=== PATIENT | male | born 1985 | race Caucasian/White ===

== ENCOUNTER 2017-10-26 11:25 | Emergency (ER) | payer SELFPAY ==
[2017-10-26 11:58] VITALS: BP 114/75; PULSE 98; TEMP 98; BMI 24.3
--- NOTE | 2017-10-26 14:05 | PDOC ---
History of Present Illness - General Chief Complaint: Eye Problem Stated Complaint: LT EYE IRRITATION Time Seen by Provider: 10/26/17 13:21 History Source: Patient Exam Limitations: No Limitations - History of Present Illness Initial Comments: 10/26/17 13:58 31 y/o male presents to the ED with complaints of a bump to his right eye which he noted last week. 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 Patient states has no visual changes, fever chills or drainage from the area. Timing/Duration: constant Severity: mild Associated Symptoms: reports: denies symptoms Past History - Travel Traveled outside of the country in the last 30 days: No - Past Medical History Allergies/Adverse Reactions: Allergies Allergy/AdvReac Type Severity Reaction Status Date / Time No Known Allergies Allergy Verified 10/26/17 11:55 Home Medications: Ambulatory Orders Bacitracin Ophthalmic Oint - 0.5 inch OD BID #1 tube 10/26/17 COPD: No Other medical history: DENIES. - Suicide/Smoking/Psychosocial Hx Smoking History: Current every day smoker Have you smoked in the past 12 months: Yes Number of Cigarettes Smoked Daily: 20 Information on smoking cessation initiated: No Hx Alcohol Use: Yes (WEEKENDS) Substance Use Type: Alcohol, Marijuana Patient Lives Alone: No Lives with/in: parents Review of Systems - Review of Systems Able to Perform ROS?: Yes Constitutional: No: Symptoms Reported HEENTM: Yes: See HPI Integumentary: Yes: Lumps *Physical Exam - Vital Signs Last Vital Signs Temp Pulse Resp BP Pulse Ox 98 F 98 H 19 114/75 99 10/26/17 11:55 10/26/17 11:55 10/26/17 11:55 10/26/17 11:55 10/26/17 11:55 - Physical Exam General Appearance: Yes: Nourished, Appropriately Dressed. No: Apparent Distress HEENT: positive: Other (noted white hordeolum to inner lower eyelid approx 0.25cm in diameter. Surrounding skin intact. ) Integumentary: positive: Normal Color, Warm, Moist Procedures - Incision and Drainage I&D Site: Right: Other Betadine cleansed: No Blade Size: 18 gauge needle Attempts: 1 Complications: none Medical Decision Making - Medical Decision Making 10/26/17 14:07 Pt with purulent hordeolum to lower right eyelid. Drainage performed with 18 gauge needle. Drained purulent fluid . Pt has no complaints and ordered for bacitracin oitment for prophylaxis. *DC/Admit/Observation/Transfer Diagnosis at time of Disposition: Hordeolum internum of right lower eyelid - Discharge Dispostion Disposition: HOME Condition at time of disposition: Improved - Referrals - Patient Instructions Printed Discharge Instructions: DI for Hordeolum Additional Instructions: Please apply warm soaks to the area 4 times a day x 2 days. Use oitment to eye twice a day x 5 days - Post Discharge Activity
== END 2017-10-26 14:15 | disposition home or self-care (01) ==
LOC: JERFT 11:25
PROC: 089 Eye, Drainage (ICD-10-PCS; principal; 2017-10-26)
DX: H00.022 Hordeolum internum right lower eyelid (principal)
CPT/HCPCS: 99281-25

== ENCOUNTER 2023-01-15 12:34 | Emergency (ER) | payer BC ==
[2023-01-15 12:59] VITALS: BP 122/78; PULSE 86; RESP 18; TEMP 98; BMI 23.3
[2023-01-15] MEDS ORDERED: DIPHTH,PERTUSS(ACELL),TET 0.5 ML DISP.SYRIN IM ONE ×2 (13:15→13:47)
[2023-01-15] MEDS ORDERED: CEFAZOLIN SODIUM 2 GM VIAL ONE (14:30)
[2023-01-15] MEDS ORDERED: CEFAZOLIN SODIUM 2 GM VIAL IVPB ONE (14:30)
== END 2023-01-15 15:30 | disposition home or self-care (01) ==
LOC: JERFT 12:34 → JER 12:34 → JERFT 15:30
PROC: 3E03329 Introduction of Other Anti-infective into Peripheral Vein, Percutaneous Approach (ICD-10-PCS; principal; 2023-01-15)
PROC: 3E0234Z Introduction of Serum, Toxoid and Vaccine into Muscle, Percutaneous Approach (ICD-10-PCS; 2023-01-15)
DX: S61.211A Laceration without foreign body of left index finger without damage to nail, initial encounter (principal); W25.XXXA Contact with sharp glass, initial encounter
CPT/HCPCS: 73130-TC-LT-FY; 90715; 99284-25